=== PATIENT | male | born 1955 | race Caucasian/White ===

== ENCOUNTER 2017-05-02 15:55 | Outpatient (CLI) ==
--- NOTE | 2017-05-02 16:17 | DI ---
Exam: Two x-rays of the chest. Comparison: 07/11/2011. Reason for exam: Cough. FINDINGS: No pneumothorax, pleural effusion, or focal consolidation. The cardiac silhouette is not enlarged. The imaged osseous structures appear grossly unremarkable without acute fracture. Impression: No acute cardiopulmonary process.
== END 2017-05-02 15:56 | disposition home or self-care (01) ==
LOC: RAD 15:55
PROVIDERS: ATTEND Family Medicine
DX: R05 Cough (principal)